=== PATIENT | male | born 1950 | race Caucasian/White ===

== ENCOUNTER 2017-01-03 05:46 | Day surgery (SDC) | payer OTHER, MEDICARE ==
--- NOTE | 2016-12-28 15:37 | GHP ---
[f rep st] PREOP HISTORY AND PHYSICAL DATE OF ADMISSION: 01/03/2017 The patient is a 66-year-old male who complains of a right inguinal hernia noticed on a screening phy sical exam by his primary care provider. The patient says he first noticed a bulge in his right groi n about 4-5 years ago but denies any known precipitating event. The bulge has recently gotten larger . He is able to manually reduce it. He reports some discomfort but denies any major pain, nausea, v omiting, diarrhea, constipation, urinary problems, or chronic cough. He is here to discuss repair. PAST MEDICAL HISTORY: Hypertension, hypothyroidism, mixed hyperlipidemia. PAST SURGICAL HISTORY: None pertinent. MEDICATIONS: Atorvastatin, levothyroxine, and losartan. ALLERGIES: No known drug allergies. SOCIAL HISTORY: Patient exercises regularly. 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 He is a never tobacco smo ker. FAMILY HISTORY: Noncontributory. REVIEW OF SYSTEMS: A 10-point review of systems negative aside from that noted in the HPI. PHYSICAL EXAMINATION: GENERAL: Reveals a well-groomed, pleasant, alert and oriented male in no acut e distress. HEENT: Normocephalic, atraumatic. CHEST: Clear to auscultation bilaterally. CARDIAC: Regular rate and rhythm. ABDOMEN: Large, soft, reducible right inguinal defect. Nontender. No a ppreciable left inguinal defects. GENITAL: No testicular masses or tenderness. EXTREMITIES: Warm and dry. IMPRESSION: This is a 66-year-old male with an enlarging reducible right inguinal hernia. PLAN: Plan is to proceed with a laparoscopic right possible bilateral inguinal hernia repair with . Risks and options have been discussed including, but not limited to, bleeding, infection, nerve injury, bowel injury, bladder injury, recurrence, damage to surrounding structures, conversion to ope n procedure, and other problems, and he requests to proceed. /[id number]/MODL
[2017-01-03] MEDS ORDERED: ceFAZolin 2 GM/SWFI 2 GM/20 ML SYR IVP ONE (06:19)
[2017-01-03] MEDS ORDERED: LR 1,000 ML IV ONE (06:40)
[2017-01-03] MEDS ORDERED: BUPIVACAINE 0.5% 30 ML SDV ONE (06:51)
[2017-01-03] MEDS ORDERED: MIDAZOLAM 2 MG/2 ML VIAL IVP ONE (07:05)
--- NOTE | 2017-01-03 07:09 | PDANEPAE ---
ANE Past Medical History - Cardiovascular History Hx Hypertension: Yes Hx Arrhythmias: No Hx Chest Pain: No Hx Coronary Artery / Peripheral Vascular Disease: No Hx CHF / Valvular Disease: No Hx Palpitations: No - Pulmonary History Hx COPD: No Hx Asthma/Reactive Airway Disease: No Hx Recent Upper Respiratory Infection: No Hx Oxygen in Use at Home: No Hx Sleep Apnea: No Sleep Apnea Screening Result - Last Documented: Positive - Neurologic History Hx Cerebrovascular Accident: No Hx Seizures: No Hx Dementia: No - Endocrine History Hx Diabetes: No Endocrine History Comment: HYPOTHYROID - Renal History Hx Renal Disorders: No - Liver History Hx Hepatic Disorders: No - Neurological & Psychiatric Hx Hx Neurological and Psychiatric Disorders: No - Cancer History Hx Cancer: No - Congenital Disorder History Hx Congenital Disorders: No - GI History Hx Gastrointestinal Disorders: No - Chronic Pain History Chronic Pain: No - Surgical History Prior Surgeries: LT. REMVL BONE SPUR 2013 ANE Review of Systems Review of Systems: - Exercise capacity METS (RN): 5 METS ANE Patient History - Allergies Allergies/Adverse Reactions: No Known Drug Allergies Allergy (Verified 12/29/16 08:23) - Home Medications Home Medications: Aspirin HS 12/30/16 [Last Taken 12/30/16] Atorvastatin Calcium HS 12/30/16 [Last Taken 01/02/17 22:00] Levothyroxine DAILY06 12/30/16 [Last Taken 01/03/17 04:30] Losartan Potassium DAILY06 12/30/16 [Last Taken 01/03/17 04:30] - NPO status NPO Since - Liquids (Date): 01/02/17 NPO Since - Liquids (Time): 20:00 NPO Since - Solids (Date): 01/02/17 NPO Since - Solids (Time): 20:00 - Smoking Hx Smoking Status: Never smoked ANE Labs/Vital Signs - Vital Signs Blood Pressure: 139/89 Heart Rate: 86 Respiratory Rate: 15 O2 Sat (%): 96 Height: 177.8 cm Weight: 77.111 kg ANE Physical Exam - Airway Neck exam: FROM, short neck - ASA Status ASA Status: II
[2017-01-03] MEDS ORDERED: ROCURONIUM 50 MG/5 ML VIAL ONE (07:17)
[2017-01-03] MEDS ORDERED: MIDAZOLAM 2 MG/2 ML VIAL ONE (07:17)
[2017-01-03] MEDS ORDERED: fentaNYL 100 MCG/2 ML INJ ONE (07:17)
[2017-01-03] MEDS ORDERED: PROPOFOL/EMULSION 500 MG/50 ML BOTTLE IV ONE (07:18)
--- NOTE | 2017-01-03 07:22 | PDHPUP ---
History & Physical Update H&P update statement: This history and physical update is based on an assessment of the patient which was completed after admission or registration (within 24 hours), but prior to the surgery/procedure. H&P update: H&P reviewed & patient examined, no change in patient's condition since H&P completed
--- NOTE | 2017-01-03 08:04 | POSTANESTH ---
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
--- NOTE | 2017-01-03 08:04 | POSTANESTH ---
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
--- NOTE | 2017-01-03 08:25 | POSTOPPROG ---
Post Op Note Date of Operation: 01/03/17 Surgeon: Mohan Hoyos Software Release Manager: Yanique Herrera Anesthesiologist: John Bennett Anesthesia: GET(General Endotracheal) Pre-op Diagnosis: RIH Post-op Diagnosis: BIH Procedure: lap BIH repair c mesh Findings: R indirect hernia, small L direct defect Inf/Abcess present in the surg proc area at time of surgery?: No EBL: Minimal Complications: none Specimen(s): none
[2017-01-03] MEDS ORDERED: ENALAPRILAT DIHYDRATE 1.25 MG/ML VIAL ONE (08:30)
[2017-01-03] MEDS ORDERED: CALCIUM CHLORIDE 1 GM/10 ML INJ ONE (08:30)
[2017-01-03] MEDS ORDERED: ONDANSETRON 4 MG/2 ML VIAL ONE (08:30)
[2017-01-03] MEDS ORDERED: LIDOCAINE 2% 100 MG/5 ML SYR ONE (08:30)
[2017-01-03] MEDS ORDERED: DEXAMETHASONE 4 MG/ML VIAL ONE (08:30)
[2017-01-03] MEDS ORDERED: SUGAMMADEX SODIUM 200 MG/2 ML VIAL IVP ONE (08:30)
[2017-01-03] MEDS ORDERED: fentaNYL 100 MCG/2 ML INJ IVP PRN (08:48)
[2017-01-03] MEDS ORDERED: NALOXONE HCL 0.4 MG/ML INJ IVP PRN (08:48)
[2017-01-03] MEDS ORDERED: OXYCODONE/APAP 5/325 TAB PO PRN (08:48)
[2017-01-03] MEDS ORDERED: HYDROCODONE/APAP 5/325 TAB PO PRN (08:48)
[2017-01-03 09:10] VITALS: TEMP 97.5
[2017-01-03 09:11] VITALS: O2SAT 97
[2017-01-03 09:28] VITALS: BP 108/68; PULSE 68; RESP 14
[2017-01-03] MEDS ORDERED: KETOROLAC 15 MG/1 ML SDV IVP ONE (09:38)
--- NOTE | 2017-01-07 05:42 | GOP ---
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 ANESTHESIA: General endotracheal. ANESTHESIOLOGIST: Dr. Bennett. PREOPERATIVE DIAGNOSIS: Right inguinal hernia. POSTOPERATIVE DIAGNOSIS: Bilateral inguinal hernias. PROCEDURE PERFORMED: Laparoscopic bilateral inguinal hernia repairs with mesh. FINDINGS: Patient was found to have a right-sided indirect hernia and a small left direct defect. DESCRIPTION OF PROCEDURE: The patient was taken to the operating room where he received satisfactory general endotracheal anesthesia by Dr. Bennett. He was placed in supine position and prepped and neel ped in the usual sterile fashion. An infraumbilical incision was made. Dissection was carried down through subcutaneous tissue. Rectus sheath was incised. A subfascial tunnel was developed. Preperi toneal space was dissected free with a balloon dissector, which was replaced with CO2 insufflation tr ocar. Two other trocars were placed in the midline under direct vision. Cosme's ligament was expos ed bilaterally. The cords were mobilized bilaterally. Peritoneum was dissected off the cord structu res. On the left side, there was no significant indirect sac, but a small direct defect which was fr eed up, its contents were reduced. On the right, a large indirect sac was dissected free from the co rd structures and reduced. Bilateral Covidien mesh patches were introduced. On the right a split pa tch was used to pass the limb around the cord structures. It was anchored in place with AbsorbaTack, securing it to Cosme ligament, to the lacunar ligament, to the anterior abdominal wall, to the late ral abdominal wall outside the internal ring. On the left side, an onlay patch was used, being ancho red in a similar manner. Hemostasis was assured. Trocars removed under direct vision. Trocar sites were closed with 0 Vicryl for the fascia, 4-0 Monocryl subcuticular stitch for the skin. All layers infiltrated with 0.5% Marcaine. Blood loss was negligible. There were no complications. Taken to the recovery room in good condition. /[id number]/MODL
== END 2017-01-03 10:00 | disposition home or self-care (01) ==
LOC: FSGY 05:46
PROVIDERS: ATTEND Surgery
PROC: 0WUF4JZ Supplement Abdominal Wall with Synthetic Substitute, Percutaneous Endoscopic Approach (ICD-10-PCS; principal; 2017-01-03 07:15)
DX: K40.20 Bilateral inguinal hernia, without obstruction or gangrene, not specified as recurrent (principal); I10 Essential (primary) hypertension; E03.9 Hypothyroidism, unspecified; E78.2 Mixed hyperlipidemia
CPT/HCPCS: C1727; C1781; J0690; J1100; J2001; J2250; J2405; J2704; J3010